=== PATIENT | female | born 1970 | race Caucasian/White ===

== ENCOUNTER → 2016-08-31 | Outpatient (CLI) | payer OTHER ==
[~2016-08-31] MED LIST: AMBIEN10 MG PO; CELEBREX200 MG PO; COUMADIN3 MG PO; LASIX 20MG TABL20 MG PO; XOPENEX HF0.045 MG/A IH
== END ==
LOC: LAB 09:30
DX: E11.9 Type 2 diabetes mellitus without complications (principal); E78.5 Hyperlipidemia, unspecified; I48.91 Unspecified atrial fibrillation

== ENCOUNTER → 2016-09-28 | Outpatient (CLI) | payer OTHER | LOC: LAB 13:39 | DX: E78.5 Hyperlipidemia, unspecified (principal) ==

== ENCOUNTER → 2016-10-24 | Outpatient (CLI) | payer OTHER ==
[2014-01-01 10:30] VITALS: BP 112/66
== END ==
LOC: MAMMO 08:55
DX: Z12.31 Encounter for screening mammogram for malignant neoplasm of breast (principal)
CPT/HCPCS: G0202

== ENCOUNTER → 2017-01-18 | Outpatient (CLI) | payer OTHER ==
[2014-01-01 10:30] VITALS: BP 112/66
== END ==
LOC: LAB 16:30
DX: E78.2 Mixed hyperlipidemia (principal)

== ENCOUNTER → 2017-03-31 | Outpatient (CLI) | payer OTHER ==
[2014-01-01 10:30] VITALS: BP 112/66
== END ==
LOC: LAB 08:46
DX: I48.91 Unspecified atrial fibrillation (principal); E11.8 Type 2 diabetes mellitus with unspecified complications; E78.5 Hyperlipidemia, unspecified

== ENCOUNTER → 2018-05-09 | Outpatient (CLI) | payer OTHER ==
[2014-01-01 10:30] VITALS: BP 112/66
[2018-05-09 09:58] LABS: EOS # 0.1 (0.04-0.40); EOS % 1.2 % (1.0-5.0); HEMATOCRIT 45.3 % (37.0-47.0); MEAN CELL VOLUME 98 fl (78-100); MEAN CORPUSCULAR HEMOGLOBIN 33 pg (27-31); MEAN CORPUSCULAR HGB CONC 33 g/dL (33-37); MEAN PLATELET VOLUME 10.4 fl (7.4-10.4); MONO # 0.4 (0.20-0.80); NEU # 4.1 (1.40-6.50); PLATELET COUNT 189 K/mm3 (130-400); RED BLOOD COUNT 4.62 M/mm3 (4.10-5.30); RED CELL DISTRIBUTION WIDTH 13.6 % (11.5-14.5); WHITE BLOOD COUNT 6.7 K/mm3 (4.8-10.8)
[2018-05-09 10:39] LABS: ALBUMIN 4.2 g/dL (3.5-5.0); CALCIUM 9.3 mg/dL (8.4-10.2); TOTAL BILIRUBIN 1.3 mg/dL (0.2-1.3); TOTAL PROTEIN 7.9 g/dL (6.3-8.2)
[2018-05-09 10:52] LABS: URINE APPEARANCE CLEAR; URINE BILIRUBIN NEGATIVE (NEGATIVE); URINE BLOOD NEGATIVE (NEGATIVE); URINE COLOR YELLOW; URINE GLUCOSE NEGATIVE (NEGATIVE); URINE KETONE NEGATIVE (NEGATIVE); URINE LEUKOCYTE ESTERASE NEGATIVE (NEGATIVE); URINE MUCUS PRESENT (NOT PRESENT); URINE NITRATE NEGATIVE (NEGATIVE); URINE PROTEIN(semi-quant) TRACE mg/dL (NEGATIVE); URINE UROBILINOGEN NORMAL (NORMAL)
[2018-05-09 11:00] LABS: ERYTHROCYTE SEDIMENTATION RATE 29 mm/hr (0-20)
[2018-05-10 05:00] LABS: CREATININE OTHER SOURCE 88 mg/dL (())
== END ==
LOC: LAB 09:36 → MAMMO 09:36
PROVIDERS: Internal Medicine
DX: Z12.31 Encounter for screening mammogram for malignant neoplasm of breast (principal); Z12.11 Encounter for screening for malignant neoplasm of colon; Z00.00 Encounter for general adult medical examination without abnormal findings

== ENCOUNTER → 2018-12-12 | Outpatient (CLI) | payer OTHER ==
[2014-01-01 10:30] VITALS: BP 112/66
== END ==
LOC: RAD 13:36
DX: I51.7 Cardiomegaly (principal); Z95.2 Presence of prosthetic heart valve

== ENCOUNTER → 2019-05-15 | Outpatient (CLI) | payer OTHER ==
[2014-01-01 10:30] VITALS: BP 112/66
[2019-05-15 12:55] LABS: EOS # 0.2 (0.04-0.40); HEMATOCRIT 42.9 % (37.0-47.0); HEMOGLOBIN 14.5 g/dL (12.5-16.0); MEAN CELL VOLUME 98 fl (78-100); MEAN CORPUSCULAR HEMOGLOBIN 33 pg (27-31); MEAN CORPUSCULAR HGB CONC 34 g/dL (33-37); MEAN PLATELET VOLUME 10.1 fl (7.4-10.4); MONO # 0.5 (0.20-0.80); NEU # 4.2 (1.40-6.50); PLATELET COUNT 180 K/mm3 (130-400); RED BLOOD COUNT 4.38 M/mm3 (4.10-5.30); RED CELL DISTRIBUTION WIDTH 14.6 % (11.5-14.5)
[2019-05-15 13:12] LABS: URINE APPEARANCE CLEAR; URINE BILIRUBIN NEGATIVE (NEGATIVE); URINE BLOOD NEGATIVE (NEGATIVE); URINE COLOR YELLOW; URINE GLUCOSE NEGATIVE (NEGATIVE); URINE KETONE NEGATIVE (NEGATIVE); URINE LEUKOCYTE ESTERASE NEGATIVE (NEGATIVE); URINE MUCUS PRESENT (NOT PRESENT); URINE NITRATE NEGATIVE (NEGATIVE); URINE PROTEIN(semi-quant) TRACE mg/dL (NEGATIVE); URINE UROBILINOGEN NORMAL (NORMAL)
[2019-05-15 13:22] LABS: POTASSIUM 4.1 mmol/L (3.5-5.1)
[2019-05-15 13:24] LABS: CALCIUM 10.2 mg/dL (8.3-10.5)
[2019-05-15 13:25] LABS: TOTAL PROTEIN 7.6 g/dL (6.4-8.3)
[2019-05-15 14:32] LABS: ERYTHROCYTE SEDIMENTATION RATE 25 mm/hr (0-30)
[2019-05-16 01:31] LABS: PTH,INTACT 41.4 pg/mL (6.6-88.9)
[2019-05-16 11:22] LABS: CREATININE OTHER SOURCE 44 mg/dL (())
== END ==
LOC: RAD 12:28
PROVIDERS: Internal Medicine
DX: Z00.00 Encounter for general adult medical examination without abnormal findings (principal); Z12.11 Encounter for screening for malignant neoplasm of colon; Z12.31 Encounter for screening mammogram for malignant neoplasm of breast; M25.512 Pain in left shoulder; K90.9 Intestinal malabsorption, unspecified; E21.1 Secondary hyperparathyroidism, not elsewhere classified; E11.9 Type 2 diabetes mellitus without complications; E78.5 Hyperlipidemia, unspecified; I48.91 Unspecified atrial fibrillation; R92.1 Mammographic calcification found on diagnostic imaging of breast; Z98.890 Other specified postprocedural states

== ENCOUNTER → 2019-05-22 | Outpatient (CLI) | payer OTHER ==
[2014-01-01 10:30] VITALS: BP 112/66
== END ==
LOC: RAD 13:09
DX: M19.012 Primary osteoarthritis, left shoulder (principal); M75.32 Calcific tendinitis of left shoulder; M75.52 Bursitis of left shoulder

== ENCOUNTER 2019-09-05 14:01 | Emergency (ER) | payer OTHER ==
[~2019-09-05] VITALS: Ht 167.6 cm; Wt 140.9 kg
[2019-09-05] MEDS ORDERED: PRAVASTATIN SOD40 MG PO (14:25)
[2019-09-05] MEDS ORDERED: ALDACTONE 25MG25 MG PO (14:25)
[2019-09-05 14:30] LABS: HEMATOCRIT 42.1 % (37.0-47.0); HEMOGLOBIN 13.7 g/dL (12.5-16.0); MEAN CELL VOLUME 99 fl (78-100); MEAN CORPUSCULAR HEMOGLOBIN 32 pg (27-31); MEAN CORPUSCULAR HGB CONC 33 g/dL (33-37); MEAN PLATELET VOLUME 10.1 fl (7.4-10.4); PLATELET COUNT 111 K/mm3 (130-400); RED BLOOD COUNT 4.25 M/mm3 (4.10-5.30); RED CELL DISTRIBUTION WIDTH 14.3 % (11.5-14.5)
[2019-09-05 14:40] LABS: ALBUMIN 3.8 g/dL (3.5-5.0)
[2019-09-05 14:41] LABS: POTASSIUM 3.7 mmol/L (3.5-5.1)
[2019-09-05 14:42] LABS: CALCIUM 8.9 mg/dL (8.3-10.5); LYMPHOCYTE 3 % (20-51); MONOCYTE 3 % (3-10); NEUTROPHILS 92 % (42-75); PROTHROMBIN TIME 17.1 SECONDS (9.0-12.0)
[2019-09-05 14:43] LABS: TOTAL PROTEIN 7.2 g/dL (6.4-8.3)
[2019-09-05 14:45] LABS: TOTAL BILIRUBIN 1.7 mg/dL (0.2-1.2)
[2019-09-05] MEDS ORDERED: WARFARIN SODIUM6 MG PO (16:44)
[2019-09-05] MEDS ORDERED: SAXENDA3 MG/0.5 M SQ (16:44)
[2019-09-05] MEDS ORDERED: WARFARIN SODIUM1 MG PO (16:44)
[2019-09-05] MEDS ORDERED: CELEBREX 200MG200 MG PO (16:45)
[2019-09-05] MEDS ORDERED: LASIX20 M1 PO (16:46)
[2019-09-05] MEDS ORDERED: XOPENEX HF0.045 MG/A IH (16:46)
[2019-09-05] MEDS ORDERED: K-TAB10 MEQ PO (16:47)
[2019-09-05] MEDS ORDERED: BISOPROLOL FUMA1 TA1 PO (16:48)
[2019-09-05 17:50] VITALS: BP 116/69
== END 2019-09-05 17:52 | disposition short-term general hospital (02) ==
LOC: ED 14:01
PROVIDERS: Family Medicine
DX: J10.1 Influenza due to other identified influenza virus with other respiratory manifestations (principal); I48.20 Chronic atrial fibrillation, unspecified; R09.02 Hypoxemia; I48.91 Unspecified atrial fibrillation; E11.9 Type 2 diabetes mellitus without complications; E78.5 Hyperlipidemia, unspecified; J45.909 Unspecified asthma, uncomplicated; G47.30 Sleep apnea, unspecified; F17.210 Nicotine dependence, cigarettes, uncomplicated; Z79.01 Long term (current) use of anticoagulants; Z95.4 Presence of other heart-valve replacement
CPT/HCPCS: J1940; J2930

== ENCOUNTER → 2019-09-17 | Outpatient (CLI) | payer OTHER ==
[2019-09-05 17:50] VITALS: BP 116/69
[~2019-09-17] MED LIST changes: +ALDACTONE 25MG25 MG PO; +BISOPROLOL FUMA1 TA1 PO; +CELEBREX 200MG200 MG PO; +K-TAB10 MEQ PO; +LASIX20 M1 PO; +PRAVASTATIN SOD40 MG PO; +SAXENDA3 MG/0.5 M SQ; +WARFARIN SODIUM1 MG PO; +WARFARIN SODIUM6 MG PO
[2019-09-17 11:06] LABS: POTASSIUM 3.9 mmol/L (3.5-5.1)
[2019-09-17 11:07] LABS: CALCIUM 9.4 mg/dL (8.3-10.5)
[2019-09-17 11:09] LABS: PROTHROMBIN TIME 17.6 SECONDS (9.0-12.0)
== END ==
LOC: LAB 10:42
PROVIDERS: Internal Medicine
DX: I48.91 Unspecified atrial fibrillation (principal)

== ENCOUNTER → 2019-10-30 | Outpatient (CLI) | payer OTHER ==
[2019-10-30 12:51] LABS: POTASSIUM 4.1 mmol/L (3.5-5.1)
[2019-10-30 12:52] LABS: CALCIUM 9.2 mg/dL (8.3-10.5)
== END ==
LOC: LAB 12:19
PROVIDERS: Internal Medicine
DX: I48.91 Unspecified atrial fibrillation (principal)

== ENCOUNTER → 2020-05-03 | Outpatient (CLI) | payer OTHER ==
[2020-05-03 10:11] LABS: EOS # 0.1 (0.04-0.40); EOS % 1.4 % (1.0-5.0); HEMATOCRIT 43.1 % (37.0-47.0); HEMOGLOBIN 13.8 g/dL (12.5-16.0); LYMPH# 1.6 (1.50-4.00); MEAN CELL VOLUME 98 fl (78-100); MEAN CORPUSCULAR HEMOGLOBIN 31 pg (27-31); MEAN CORPUSCULAR HGB CONC 32 g/dL (33-37); MEAN PLATELET VOLUME 10.2 fl (7.4-10.4); MONO # 0.4 (0.20-0.80); NEU # 3.7 (1.40-6.50); PLATELET COUNT 144 K/mm3 (130-400); RED BLOOD COUNT 4.39 M/mm3 (4.10-5.30); RED CELL DISTRIBUTION WIDTH 14.9 % (11.5-14.5); WHITE BLOOD COUNT 5.9 K/mm3 (4.8-10.8)
[2020-05-03 10:51] LABS: POTASSIUM 4.3 mmol/L (3.5-5.1)
[2020-05-03 10:52] LABS: ALBUMIN 3.8 g/dL (3.5-5.0)
[2020-05-03 10:53] LABS: CALCIUM 9.2 mg/dL (8.3-10.5)
[2020-05-03 10:54] LABS: TOTAL PROTEIN 8.4 g/dL (6.4-8.3)
[2020-05-03 10:56] LABS: TOTAL BILIRUBIN 1.1 mg/dL (0.2-1.2)
[2020-05-03 11:41] LABS: ERYTHROCYTE SEDIMENTATION RATE 28 mm/hr (0-30)
[2020-05-03 11:51] LABS: PH-URINE 7.5 (5.0 - 8.0); URINE APPEARANCE CLEAR; URINE BILIRUBIN NEGATIVE (NEGATIVE); URINE BLOOD 50 ery/uL (NEGATIVE); URINE COLOR YELLOW; URINE GLUCOSE NEGATIVE (NEGATIVE); URINE KETONE NEGATIVE (NEGATIVE); URINE LEUKOCYTE ESTERASE NEGATIVE (NEGATIVE); URINE MUCUS PRESENT (NOT PRESENT); URINE NITRATE NEGATIVE (NEGATIVE); URINE PROTEIN(semi-quant) NEGATIVE (NEGATIVE); URINE UROBILINOGEN NORMAL (NORMAL)
[2020-05-03 21:48] LABS: CREATININE OTHER SOURCE 47 mg/dL (())
[2020-05-03 22:06] LABS: PTH,INTACT 88.6 pg/mL (6.6-88.9)
== END ==
LOC: LAB 09:50
PROVIDERS: Internal Medicine
DX: Z00.00 Encounter for general adult medical examination without abnormal findings (principal); E21.1 Secondary hyperparathyroidism, not elsewhere classified; K90.9 Intestinal malabsorption, unspecified

== ENCOUNTER → 2020-10-21 | Outpatient (CLI) | payer OTHER ==
[2020-10-21 11:16] LABS: EOS # 0.1 (0.04-0.40); EOS % 2.4 % (1.0-5.0); HEMATOCRIT 42.3 % (37.0-47.0); HEMOGLOBIN 13.3 g/dL (12.5-16.0); LYMPH# 1.4 (1.50-4.00); MEAN CELL VOLUME 101 fl (78-100); MEAN CORPUSCULAR HEMOGLOBIN 32 pg (27-31); MEAN CORPUSCULAR HGB CONC 31 g/dL (33-37); MEAN PLATELET VOLUME 10.2 fl (7.4-10.4); MONO # 0.3 (0.20-0.80); NEU # 3.1 (1.40-6.50); PLATELET COUNT 151 K/mm3 (130-400); RED BLOOD COUNT 4.17 M/mm3 (4.10-5.30); RED CELL DISTRIBUTION WIDTH 14.2 % (11.5-14.5); WHITE BLOOD COUNT 4.9 K/mm3 (4.8-10.8)
[2020-10-21 11:21] LABS: ALBUMIN 3.7 g/dL (3.5-5.0); POTASSIUM 4.2 mmol/L (3.5-5.1)
[2020-10-21 11:22] LABS: CALCIUM 9.1 mg/dL (8.3-10.5)
[2020-10-21 11:23] LABS: TOTAL PROTEIN 7.7 g/dL (6.4-8.3)
[2020-10-21 11:25] LABS: TOTAL BILIRUBIN 1.3 mg/dL (0.2-1.2)
[2020-10-21 11:29] LABS: URINE COLOR YELLOW
[2020-10-21 11:30] LABS: URINE APPEARANCE CLEAR; URINE BILIRUBIN NEGATIVE (NEGATIVE); URINE BLOOD NEGATIVE (NEGATIVE); URINE GLUCOSE NEGATIVE (NEGATIVE); URINE KETONE NEGATIVE (NEGATIVE); URINE LEUKOCYTE ESTERASE NEGATIVE (NEGATIVE); URINE NITRATE NEGATIVE (NEGATIVE); URINE PROTEIN(semi-quant) NEGATIVE (NEGATIVE); URINE UROBILINOGEN NORMAL (NORMAL); URINE WBC 0-1 /hpf (0-3)
== END ==
LOC: LAB 10:47 → RAD 10:47
PROVIDERS: Internal Medicine
DX: K43.9 Ventral hernia without obstruction or gangrene (principal); E11.9 Type 2 diabetes mellitus without complications; E78.2 Mixed hyperlipidemia; Z90.49 Acquired absence of other specified parts of digestive tract; Z98.84 Bariatric surgery status; K90.9 Intestinal malabsorption, unspecified

== ENCOUNTER → 2021-06-09 | Outpatient (CLI) | payer OTHER ==
[2021-06-09 16:44] LABS: BASO # 0.02 K/mm3 (0.02-0.10); EOS # 0.09 K/mm3 (0.04-0.40); EOS % 1.7 % (1.0-5.0); HEMATOCRIT 47.2 % (37.0-47.0); HEMOGLOBIN 15.5 g/dL (12.5-16.0); LYMPH# 1.98 K/mm3 (1.50-4.00); MEAN CELL VOLUME 101 fl (78-100); MEAN CORPUSCULAR HEMOGLOBIN 33 pg (27-31); MEAN CORPUSCULAR HGB CONC 33 g/dL (33-37); MONO # 0.42 K/mm3 (0.20-0.80); NEU # 2.85 K/mm3 (1.40-6.50); PLATELET COUNT 158 K/mm3 (130-400); RED BLOOD COUNT 4.66 M/mm3 (4.10-5.30); RED CELL DISTRIBUTION WIDTH 13.6 % (11.5-14.5); WHITE BLOOD COUNT 5.4 K/mm3 (4.8-10.8)
[2021-06-09 17:10] LABS: ALBUMIN 4.2 g/dL (3.5-5.0)
[2021-06-09 17:11] LABS: POTASSIUM 3.9 mmol/L (3.5-5.1)
[2021-06-09 17:12] LABS: CALCIUM 9.8 mg/dL (8.3-10.5)
[2021-06-09 17:13] LABS: TOTAL PROTEIN 8.6 g/dL (6.4-8.3)
[2021-06-09 17:15] LABS: TOTAL BILIRUBIN 1.4 mg/dL (0.2-1.2)
[2021-06-09 17:20] LABS: MAGNESIUM 1.89 mg/dL (1.60-2.60)
[2021-06-13 22:42] LABS: ADRENOCORTICOTROPIC HORMONE 15 pg/mL (5-27)
== END ==
LOC: LAB 16:29
PROVIDERS: Internal Medicine
DX: R55 Syncope and collapse (principal)

== ENCOUNTER → 2022-01-30 | Outpatient (CLI) | payer OTHER ==
[2022-01-30 11:44] LABS: BASO # 0.02 K/mm3 (0.02-0.10); EOS # 0.06 K/mm3 (0.04-0.40); EOS % 0.8 % (1.0-5.0); HEMATOCRIT 43.5 % (37.0-47.0); LYMPH# 1.63 K/mm3 (1.50-4.00); MEAN CELL VOLUME 103 fl (78-100); MEAN CORPUSCULAR HEMOGLOBIN 33 pg (27-31); MEAN CORPUSCULAR HGB CONC 32 g/dL (33-37); MONO # 0.43 K/mm3 (0.20-0.80); NEU # 5.62 K/mm3 (1.40-6.50); PLATELET COUNT 180 K/mm3 (130-400); RED BLOOD COUNT 4.24 M/mm3 (4.10-5.30); WHITE BLOOD COUNT 7.8 K/mm3 (4.8-10.8)
[2022-01-30 11:53] LABS: POTASSIUM 4.1 mmol/L (3.5-5.1)
[2022-01-30 11:54] LABS: ALBUMIN 3.8 g/dL (3.5-5.0)
[2022-01-30 11:55] LABS: CALCIUM 9.3 mg/dL (8.3-10.5)
[2022-01-30 11:56] LABS: TOTAL PROTEIN 7.4 g/dL (6.4-8.3)
[2022-01-30 11:58] LABS: TOTAL BILIRUBIN 1.1 mg/dL (0.2-1.2)
[2022-01-30 12:01] LABS: URINE APPEARANCE HAZY; URINE BILIRUBIN NEGATIVE (NEGATIVE); URINE COLOR YELLOW; URINE GLUCOSE NEGATIVE (NEGATIVE); URINE KETONE NEGATIVE (NEGATIVE); URINE LEUKOCYTE ESTERASE NEGATIVE (NEGATIVE); URINE NITRATE NEGATIVE (NEGATIVE); URINE PROTEIN(semi-quant) NEGATIVE (NEGATIVE); URINE UROBILINOGEN NORMAL (NORMAL)
[2022-01-30 12:02] LABS: URINE BLOOD TRACE (NEGATIVE); URINE WBC 0-1 /hpf (0-3)
[2022-01-30 22:11] LABS: FOLATE (FOLIC ACID) 16.5 ng/mL (2.0-20.0)
[2022-02-01 16:47] LABS: A/G RATIO (PEP) 0.93 (()); BETA GLOBULINS (PEP) 1.4 g/dL (0.7-1.2)
[2022-02-03 14:53] LABS: VITAMIN B1 108 nmol/L (70-180)
[2022-02-08 14:17] LABS: ARSENIC URINE AMS; MERCURY URINE AMS
== END ==
LOC: LAB 11:04
PROVIDERS: Internal Medicine
DX: K90.9 Intestinal malabsorption, unspecified (principal); I48.91 Unspecified atrial fibrillation; E11.9 Type 2 diabetes mellitus without complications; G47.33 Obstructive sleep apnea (adult) (pediatric); E78.2 Mixed hyperlipidemia; G60.9 Hereditary and idiopathic neuropathy, unspecified; N39.0 Urinary tract infection, site not specified

== ENCOUNTER → 2022-07-27 | Outpatient (CLI) | payer OTHER ==
[2022-07-27 08:44] LABS: BASO # 0.02 K/mm3 (0.02-0.10); EOS % 1.6 % (1.0-5.0); HEMATOCRIT 44.6 % (37.0-47.0); HEMOGLOBIN 14.5 g/dL (12.5-16.0); MEAN CELL VOLUME 103 fl (78-100); MEAN CORPUSCULAR HEMOGLOBIN 33 pg (27-31); MEAN CORPUSCULAR HGB CONC 33 g/dL (33-37); MEAN PLATELET VOLUME 10.1 fl (7.4-10.4); MONO # 0.41 K/mm3 (0.20-0.80); PLATELET COUNT 162 K/mm3 (130-400); RED BLOOD COUNT 4.35 M/mm3 (4.10-5.30); RED CELL DISTRIBUTION WIDTH 13.7 % (11.5-14.5); WHITE BLOOD COUNT 6.4 K/mm3 (4.8-10.8)
[2022-07-27 09:09] LABS: ALBUMIN 3.5 g/dL (3.5-5.0); POTASSIUM 3.5 mmol/L (3.5-5.1)
[2022-07-27 09:10] LABS: CALCIUM 9.3 mg/dL (8.3-10.5)
[2022-07-27 09:12] LABS: TOTAL PROTEIN 6.9 g/dL (6.4-8.3)
[2022-07-27 09:14] LABS: TOTAL BILIRUBIN 1.1 mg/dL (0.2-1.2)
[2022-07-27 09:54] LABS: PROTHROMBIN TIME 21.7 SECONDS (9.0-12.0)
[2022-07-27 11:03] LABS: ERYTHROCYTE SEDIMENTATION RATE 23 mm/hr (0-30)
== END ==
LOC: LAB 08:08
PROVIDERS: Internal Medicine
DX: I48.91 Unspecified atrial fibrillation (principal); G47.33 Obstructive sleep apnea (adult) (pediatric); J45.40 Moderate persistent asthma, uncomplicated; J45.909 Unspecified asthma, uncomplicated; J20.9 Acute bronchitis, unspecified; E11.9 Type 2 diabetes mellitus without complications; R09.81 Nasal congestion

== ENCOUNTER → 2022-08-10 | Outpatient (CLI) | payer OTHER | LOC: RAD 07:51 | DX: J34.2 Deviated nasal septum (principal); J34.89 Other specified disorders of nose and nasal sinuses | CPT/HCPCS: Q9967 ==

== ENCOUNTER → 2024-03-27 | Outpatient (CLI) | payer OTHER ==
[2024-03-27 11:03] LABS: URINE WBC 0 /hpf (0-3)
[2024-03-27 11:28] LABS: BASO # 0.01 K/mm3 (0.02-0.10); EOS # 0.08 K/mm3 (0.04-0.40); EOS % 1.5 % (1.0-5.0); HEMATOCRIT 41.1 % (37.0-47.0); LYMPH# 1.17 K/mm3 (1.50-4.00); MEAN CELL VOLUME 99 fl (78-100); MEAN CORPUSCULAR HEMOGLOBIN 31 pg (27-31); MEAN CORPUSCULAR HGB CONC 32 g/dL (33-37); MEAN PLATELET VOLUME 9.5 fl (7.4-10.4); MONO # 0.33 K/mm3 (0.20-0.80); NEU # 3.73 K/mm3 (1.40-6.50); PLATELET COUNT 154 K/mm3 (130-400); RED BLOOD COUNT 4.17 M/mm3 (4.10-5.30); RED CELL DISTRIBUTION WIDTH 15.1 % (11.5-14.5); WHITE BLOOD COUNT 5.3 K/mm3 (4.8-10.8)
[2024-03-27 11:37] LABS: ALBUMIN 3.7 g/dL (3.5-5.0)
[2024-03-27 11:38] LABS: CALCIUM 9.9 mg/dL (8.3-10.5)
[2024-03-27 11:40] LABS: TOTAL PROTEIN 7.2 g/dL (6.4-8.3)
[2024-03-27 11:42] LABS: TOTAL BILIRUBIN 1.1 mg/dL (0.2-1.2)
[2024-03-27 11:47] LABS: MAGNESIUM 1.6 mg/dL (1.60-2.60)
[2024-03-27 12:13] LABS: PROTHROMBIN TIME 42.3 SECONDS (9.0-12.0); URINE APPEARANCE CLEAR (CLEAR); URINE BILIRUBIN NEGATIVE (NEGATIVE); URINE BLOOD NEGATIVE (NEGATIVE); URINE COLOR YELLOW (YELLOW); URINE GLUCOSE NEGATIVE (NEGATIVE); URINE KETONE NEGATIVE (NEGATIVE); URINE LEUKOCYTE ESTERASE NEGATIVE (NEGATIVE); URINE NITRATE NEGATIVE (NEGATIVE); URINE PROTEIN(semi-quant) NEGATIVE (NEGATIVE)
[2024-03-27 23:06] LABS: PTH,INTACT 55.4 pg/mL (6.6-88.9)
== END ==
LOC: LAB 10:57
PROVIDERS: Internal Medicine
DX: Z00.00 Encounter for general adult medical examination without abnormal findings (principal); I48.91 Unspecified atrial fibrillation; Z98.890 Other specified postprocedural states

== ENCOUNTER → 2024-08-18 | Outpatient (CLI) | payer OTHER ==
[2024-08-18 11:06] LABS: BASO # 0.02 K/mm3 (0.02-0.10); EOS # 0.11 K/mm3 (0.04-0.40); EOS % 1.9 % (1.0-5.0); HEMOGLOBIN 13.2 g/dL (12.5-16.0); LYMPH# 1.24 K/mm3 (1.50-4.00); MEAN CELL VOLUME 101 fl (78-100); MEAN CORPUSCULAR HEMOGLOBIN 32 pg (27-31); MEAN CORPUSCULAR HGB CONC 31 g/dL (33-37); MEAN PLATELET VOLUME 9.6 fl (7.4-10.4); MONO # 0.32 K/mm3 (0.20-0.80); NEU # 3.97 K/mm3 (1.40-6.50); PLATELET COUNT 139 K/mm3 (130-400); RED BLOOD COUNT 4.14 M/mm3 (4.10-5.30); RED CELL DISTRIBUTION WIDTH 14.6 % (11.5-14.5); WHITE BLOOD COUNT 5.7 K/mm3 (4.8-10.8)
[2024-08-18 11:13] LABS: ALBUMIN 3.8 g/dL (3.5-5.0)
[2024-08-18 11:14] LABS: CALCIUM 9.7 mg/dL (8.3-10.5)
[2024-08-18 11:16] LABS: TOTAL PROTEIN 7.8 g/dL (6.4-8.3)
[2024-08-18 11:18] LABS: TOTAL BILIRUBIN 1.1 mg/dL (0.2-1.2)
[2024-08-18 11:23] LABS: MAGNESIUM 1.79 mg/dL (1.60-2.60)
== END ==
LOC: LAB 10:48
PROVIDERS: Internal Medicine
DX: I48.91 Unspecified atrial fibrillation (principal); E11.9 Type 2 diabetes mellitus without complications; E78.2 Mixed hyperlipidemia